=== PATIENT | female | born 1995 | race Caucasian/White ===

== ENCOUNTER 2018-05-02 14:16 | Emergency (ER) | payer SELFPAY ==
[~2018-05-02] VITALS: Ht 157.5 cm; Wt 65.0 kg
[~2018-05-02 14:16] MED LIST: IBUP-1542 PO
[2018-05-02 14:37] VITALS: BP 107/59; PULSE 89; RESP 18; Ht 157.5 cm; Wt 65.0 kg
== END 2018-05-02 19:13 | disposition left against medical advice (07) ==
LOC: FTE 14:16
DX: Z53.21 Procedure and treatment not carried out due to patient leaving prior to being seen by health care provider (principal)